=== PATIENT | male | born 1950 | race Caucasian/White ===

== ENCOUNTER 2018-05-11 18:41 | Inpatient (IN) | payer OTHER ==
[~2018-05-11] VITALS: Ht 195.6 cm; Wt 93.6 kg
[2018-05-11 19:01] LABS: COMMENTS - BLOOD GASES A+C+; DEVICE MASK VENT; FI02 100 %; PCO2 29 mm Hg (35-45); PEEP 7 CM/H20; PO2 242 mm Hg (80-100); PRES. SUPPORT 15 CM/H2O; SITE LR; TOTAL RESP RATE 38 resp/min; pH 7.37 (7.35-7.45)
[2018-05-11 19:02] LABS: BASE EXCESS -6.9 mEq/L (-3 to +3); BICARBONATE 16.8 mEq/L (22-26); CARBOXY HGB 1.6 % (0-5); METHEMOGLOBIN 1.5 % (0-1.5)
[2018-05-11 19:08] LABS: BASOPHIL (%) 0.3 % (0-1); BASOPHIL COUNT 0.1 K/uL (0-0.1); EOSINOPHIL (%) 0 % (0-5); HEMOGLOBIN 17.1 G/DL (12.5-16.6); LYMPHOCYTE (%) 3.4 % (15-42); LYMPHOCYTE COUNT 0.7 K/uL (1.0-2.8); MCH 31.8 PG (29.0-34.0); MCHC 36.4 G/DL (30.0-36.0); MCV 87.5 FL (86-99); MONOCYTE (%) 3.7 % (3-12); MONOCYTE COUNT 0.7 K/uL (0-0.8); NEUTROPHIL (%) 90.6 % (45-76); NEUTROPHIL COUNT 17.4 K/uL (1.8-6.4); PLATELET COUNT 193 K/uL (156-360); RBC DIS.WIDTH-CV 14.6 % (11.8-14.6); RBC DIS.WIDTH-SD 46.7 % (39-53); RED BLOOD COUNT 5.37 M/uL (4.00-5.50); WHITE BLOOD COUNT 19.3 K/uL (4.1-10.2)
[2018-05-11 19:15] LABS: INTER. NORMALIZED RATIO 1.1
[2018-05-11 19:17] LABS: ALBUMIN 3.2 g/dL (3.2-4.8); CHLORIDE 97 mEq/L (99-109); POTASSIUM 5.8 mEq/L (3.7-5.4); PTT 27.5 SEC (25-37); SODIUM 133 mEq/L (136-147)
[2018-05-11 19:19] LABS: GLUCOSE 121 mg/dL (70-99); TOTAL PROTEIN 6.8 g/dL (6.4-8.3)
[2018-05-11 19:21] LABS: TOTAL BILIRUBIN 0.8 mg/dL (0.0-1.0)
[2018-05-11 19:23] LABS: ALKALINE PHOSPHATASE 110 IU/L (3-129); CREATININE 7.1 mg/dL (0.6-1.3)
[2018-05-11 19:24] LABS: UREA NITROGEN (BUN) 95 mg/dL (9-23)
[2018-05-11 19:26] LABS: ALT (GPT) 623 IU/L (3-49)
[2018-05-11 19:30] LABS: TROP-I INTERPRETATION NEGATIVE; TROPONIN-I 0.05 ng/mL (0.0-0.30)
[2018-05-11 19:31] LABS: CK-MB 81.2 ng/mL (0.0-4.9)
[2018-05-11 19:37] LABS: GFR ESTIMATE (CALCULATED) 8 mL/min/ (58.99-99999)
[2018-05-11 19:38] LABS: AST (GOT) 1414 IU/L (2-34)
[2018-05-11 20:15] LABS: APPEARANCE SL.HAZY ((CLEAR)); BILIRUBIN NEGATIVE; BLOOD LARGE; GLUCOSE (STRIP) 50; KETONES NEGATIVE; LEUKOCYTES NEGATIVE; NITRITE NEGATIVE; PROTEIN (STRIP) 100; SPECIFIC GRAVITY 1.015 (1.000-1.030); UROBILINOGEN 0.2 MG/DL (0.2-1.0)
[2018-05-11 20:16] LABS: COLOR BROWN ((YELLOW))
[2018-05-11 20:18] LABS: AMORPHOUS URATES CRYSTALS 1+; BACTERIA 1+ /HPF; EPITHELIAL CELLS NONE SEEN /HPF; FINE GRANULAR CASTS 0-5 /LPF; MUCUS 1+ /LPF; RED BLOOD CELLS NONE SEEN /HPF (0-5); UCUL ADDED? NO; WHITE BLOOD CELLS NONE SEEN /HPF (0-5)
[2018-05-11 20:59] LABS: COMMENTS - BLOOD GASES C+; DEVICE VENT; FI02 100 %; MECHANICAL RATE 14 resp/min; MODE AC; SITE RR; TIDAL VOLUME 450 ML; TOTAL RESP RATE 15 resp/min
[2018-05-11 21:00] LABS: CARBOXY HGB 1.8 % (0-5); O2 SATURATION (CALCULATED) 96.9 % (95-99); PCO2 84 mm Hg (35-45); PEEP 5 CM/H20; PO2 162 mm Hg (80-100); pH 7.03 (7.35-7.45)
[2018-05-11 21:01] LABS: BASE EXCESS -10.7 mEq/L (-3 to +3); BICARBONATE 22.2 mEq/L (22-26); METHEMOGLOBIN 1.3 % (0-1.5)
[2018-05-11 21:35] LABS: COMMENTS - BLOOD GASES C+; DEVICE VENT; FI02 100 %; MECHANICAL RATE 43 resp/min; MODE AC; PEEP 10 CM/H20; SITE RR; TIDAL VOLUME 450 ML; TOTAL RESP RATE 43 resp/min; pH 7.16 (7.35-7.45)
[2018-05-11 21:36] LABS: BASE EXCESS -9.2 mEq/L (-3 to +3); BICARBONATE 20.3 mEq/L (22-26); CARBOXY HGB 1.6 % (0-5); METHEMOGLOBIN 1.5 % (0-1.5); O2 SATURATION (CALCULATED) 96.9 % (95-99); PCO2 57 mm Hg (35-45); PO2 173 mm Hg (80-100)
[2018-05-11 21:36] LABS: CKMB RELATIVE INDEX 0.3 (0.0-3.9); CREATINE KINASE 30350 IU/L (1-294); TOTAL CK 30350 IU/L (1-294)
[2018-05-11 21:45] VITALS: BP 112/73
[2018-05-11 22:00] VITALS: BP 116/73
[2018-05-11 22:30] VITALS: BP 127/84
[2018-05-11 22:35] VITALS: BP 125/84
[2018-05-11 22:58] LABS: BASE EXCESS -7.7 mEq/L (-3 to +3); BICARBONATE 18.8 mEq/L (22-26); CARBOXY HGB 0.9 % (0-5); METHEMOGLOBIN 1.3 % (0-1.5); O2 SATURATION (CALCULATED) 99.8 % (95-99); PCO2 41 mm Hg (35-45); PO2 405 mm Hg (80-100)
[2018-05-11 22:59] LABS: COMMENTS - BLOOD GASES C+A+; DEVICE VENTILATOR; FI02 100 %; MECHANICAL RATE 40 resp/min; MODE AC; PEEP 10 CM/H20; SITE RR; TIDAL VOLUME 500 ML; TOTAL RESP RATE 40 resp/min; pH 7.27 (7.35-7.45)
[2018-05-11 23:45] VITALS: BP 102/71
[2018-05-12] VITALS (18 sets, daily range): BP systolic 92–131; BP diastolic 56–78
[2018-05-12 00:33] LABS: BASOPHIL (%) 0.1 % (0-1); EOSINOPHIL (%) 0 % (0-5); HEMATOCRIT 36.6 % (38.0-50.0); HEMOGLOBIN 12.9 G/DL (12.5-16.6); IMMATURE GRANULOCYTE (%) 3.8 % (0.0-0.7); LYMPHOCYTE (%) 3.3 % (15-42); LYMPHOCYTE COUNT 0.5 K/uL (1.0-2.8); MCH 31.9 PG (29.0-34.0); MCHC 35.2 G/DL (30.0-36.0); MCV 90.4 FL (86-99); MONOCYTE (%) 3.8 % (3-12); MONOCYTE COUNT 0.6 K/uL (0-0.8); NEUTROPHIL COUNT 14.1 K/uL (1.8-6.4); PLATELET COUNT 142 K/uL (156-360); RBC DIS.WIDTH-CV 14.9 % (11.8-14.6); RBC DIS.WIDTH-SD 49.3 % (39-53); RED BLOOD COUNT 4.05 M/uL (4.00-5.50); WHITE BLOOD COUNT 15.9 K/uL (4.1-10.2)
[2018-05-12 00:38] LABS: CHLORIDE 104 mEq/L (99-109)
[2018-05-12 00:39] LABS: MAGNESIUM 2.9 mg/dL (1.3-2.7); POTASSIUM 5.7 mEq/L (3.7-5.4); SODIUM 136 mEq/L (136-147)
[2018-05-12 00:41] LABS: GLUCOSE 188 mg/dL (70-99)
[2018-05-12 00:44] LABS: CREATININE 6.9 mg/dL (0.6-1.3); GFR ESTIMATE (CALCULATED) 9 mL/min/ (58.99-99999); PHOSPHORUS 8.5 mg/dL (2.5-4.9)
[2018-05-12 00:51] LABS: UREA NITROGEN (BUN) 111 mg/dL (9-23)
[2018-05-12 01:35] LABS: BENZODIAZEPINES, URINE SCREEN Negative (200 ng/mL)
[2018-05-12 01:45] LABS: BASE EXCESS -7.5 mEq/L (-3 to +3); BICARBONATE 17.4 mEq/L (22-26); CARBOXY HGB 1.2 % (0-5); COMMENTS - BLOOD GASES C+A+; DEVICE VENTILATOR; FI02 35 %; MECHANICAL RATE 40 resp/min; METHEMOGLOBIN 1.2 % (0-1.5); MODE AC; O2 SATURATION (CALCULATED) 95.7 % (95-99); PCO2 33 mm Hg (35-45); PO2 69 mm Hg (80-100); SITE RR; TOTAL RESP RATE 40 resp/min; pH 7.33 (7.35-7.45)
[2018-05-12 01:46] LABS: PEEP 8 CM/H20; TIDAL VOLUME 500 ML
[2018-05-12 02:41] LABS: CREATINE KINASE 19290 IU/L (1-294)
[2018-05-12 03:58] LABS: CHLORIDE 100 mEq/L (99-109); SODIUM 135 mEq/L (136-147)
[2018-05-12 03:59] LABS: GLUCOSE 220 mg/dL (70-99)
[2018-05-12 04:03] LABS: CREATININE 7.1 mg/dL (0.6-1.3); GFR ESTIMATE (CALCULATED) 8 mL/min/ (58.99-99999)
[2018-05-12 04:04] LABS: UREA NITROGEN (BUN) 92 mg/dL (9-23)
[2018-05-12 05:59] LABS: BICARBONATE 18.6 mEq/L (22-26); CARBOXY HGB 1.3 % (0-5); COMMENTS - BLOOD GASES C+A+; DEVICE VENT; FI02 30 %; MECHANICAL RATE 40 resp/min; MODE AC; PCO2 30 mm Hg (35-45); PEEP 8 CM/H20; PO2 71 mm Hg (80-100); SITE RR; TIDAL VOLUME 500 ML; TOTAL RESP RATE 40 resp/min
[2018-05-12 06:16] LABS: BASOPHIL (%) 0.1 % (0-1); EOSINOPHIL (%) 0 % (0-5); HEMATOCRIT 38.3 % (38.0-50.0); HEMOGLOBIN 13.4 G/DL (12.5-16.6); IMMATURE GRANULOCYTE (%) 1.9 % (0.0-0.7); LYMPHOCYTE (%) 3.1 % (15-42); LYMPHOCYTE COUNT 0.5 K/uL (1.0-2.8); MCH 31.5 PG (29.0-34.0); MCV 89.9 FL (86-99); MONOCYTE (%) 3.5 % (3-12); MONOCYTE COUNT 0.6 K/uL (0-0.8); NEUTROPHIL (%) 91.4 % (45-76); NEUTROPHIL COUNT 15.8 K/uL (1.8-6.4); PLATELET COUNT 164 K/uL (156-360); RBC DIS.WIDTH-CV 14.9 % (11.8-14.6); RBC DIS.WIDTH-SD 49.7 % (39-53); RED BLOOD COUNT 4.26 M/uL (4.00-5.50); WHITE BLOOD COUNT 17.3 K/uL (4.1-10.2)
[2018-05-12 06:45] LABS: ALBUMIN 2.1 G/DL (3.2-4.8); ALKALINE PHOSPHATASE 66 IU/L (3-129); ALT (GPT) 367 IU/L (3-49); AST (GOT) 811 IU/L (2-34); CHLORIDE 101 MEQ/L (99-109); CREATININE 6.6 MG/DL (0.6-1.3); GFR ESTIMATE (CALCULATED) 9 mL/min/ (58.99-99999); GLUCOSE 207 mg/dL (70-99); POTASSIUM 5.2 MEQ/L (3.7-5.4); SODIUM 135 MEQ/L (136-147); TOTAL BILIRUBIN 0.8 MG/DL (0.0-1.0); TOTAL PROTEIN 4.4 G/DL (6.4-8.3)
[2018-05-12 06:50] LABS: UREA NITROGEN (BUN) 96 mg/dL (9-23)
[2018-05-12 06:54] LABS: CREATINE KINASE 16530 IU/L (1-294)
[2018-05-12 10:49] LABS: HEMOGLOBIN A1c (GLYCOHEMOGLOB) 5.8 % (Below 5.7)
[2018-05-12 14:17] LABS: INTER. NORMALIZED RATIO 1.1
[2018-05-12 14:20] LABS: PTT 24.6 SEC (25-37)
[2018-05-12 14:24] LABS: CHLORIDE 102 mEq/L (99-109); POTASSIUM 5.1 mEq/L (3.7-5.4); SODIUM 138 mEq/L (136-147)
[2018-05-12 14:26] LABS: GLUCOSE 145 mg/dL (70-99)
[2018-05-12 14:29] LABS: CREATININE 5.9 mg/dL (0.6-1.3); GFR ESTIMATE (CALCULATED) 10 mL/min/ (58.99-99999)
[2018-05-12 15:00] LABS: COMMENTS - BLOOD GASES C+; DEVICE VENT; SITE LR ALINE
[2018-05-12 15:01] LABS: FI02 30 %; MECHANICAL RATE 40 resp/min; MODE AC; PEEP 8 CM/H20; TIDAL VOLUME 500 ML; TOTAL RESP RATE 40 resp/min
[2018-05-12 15:02] LABS: BASE EXCESS -3.3 mEq/L (-3 to +3); BICARBONATE 20.1 mEq/L (22-26); CARBOXY HGB 1.4 % (0-5); METHEMOGLOBIN 1.1 % (0-1.5); O2 SATURATION (CALCULATED) 97.4 % (95-99); PCO2 31 mm Hg (35-45); PO2 81 mm Hg (80-100); pH 7.42 (7.35-7.45)
[2018-05-12 15:26] LABS: CREATINE KINASE 12912 IU/L (1-294); UREA NITROGEN (BUN) 92 mg/dL (9-23)
[2018-05-12 15:39] LABS: PHOSPHORUS 6.2 mg/dL (2.5-4.9)
[2018-05-12 20:04] LABS: CHLORIDE 103 MEQ/L (99-109); CREATININE 6.1 MG/DL (0.6-1.3); GFR ESTIMATE (CALCULATED) 10 mL/min/ (58.99-99999); GLUCOSE 148 mg/dL (70-99); POTASSIUM 5.2 MEQ/L (3.7-5.4); SODIUM 138 MEQ/L (136-147); UREA NITROGEN (BUN) 99 mg/dL (9-23)
[2018-05-12 21:33] LABS: CREATINE KINASE 9698 IU/L (1-294)
[2018-05-13] VITALS (12 sets, daily range): BP systolic 107–142; BP diastolic 54–72
[2018-05-13 01:00] LABS: CHLORIDE 103 mEq/L (99-109); POTASSIUM 4.5 mEq/L (3.7-5.4); SODIUM 139 mEq/L (136-147)
[2018-05-13 01:02] LABS: GLUCOSE 136 mg/dL (70-99)
[2018-05-13 01:06] LABS: CREATININE 5.2 mg/dL (0.6-1.3); GFR ESTIMATE (CALCULATED) 12 mL/min/ (58.99-99999); UREA NITROGEN (BUN) 91 mg/dL (9-23)
[2018-05-13 01:24] LABS: CREATINE KINASE 9553 IU/L (1-294)
[2018-05-13 05:31] LABS: BASOPHIL (%) 0.1 % (0-1); EOSINOPHIL (%) 0 % (0-5); HEMATOCRIT 35.6 % (38.0-50.0); HEMOGLOBIN 12.4 G/DL (12.5-16.6); IMMATURE GRANULOCYTE (%) 2.1 % (0.0-0.7); LYMPHOCYTE (%) 3.2 % (15-42); LYMPHOCYTE COUNT 0.6 K/uL (1.0-2.8); MCH 31.2 PG (29.0-34.0); MCHC 34.8 G/DL (30.0-36.0); MCV 89.7 FL (86-99); MONOCYTE (%) 4.6 % (3-12); MONOCYTE COUNT 0.9 K/uL (0-0.8); NEUTROPHIL COUNT 16.9 K/uL (1.8-6.4); PLATELET COUNT 195 K/uL (156-360); RBC DIS.WIDTH-SD 49.5 % (39-53); RED BLOOD COUNT 3.97 M/uL (4.00-5.50); WHITE BLOOD COUNT 18.8 K/uL (4.1-10.2)
[2018-05-13 05:33] LABS: INTER. NORMALIZED RATIO 1.1
[2018-05-13 05:35] LABS: PTT 26.1 SEC (25-37)
[2018-05-13 05:55] LABS: VANCOMYCIN, TROUGH 18.3 MCG/ML (10-20)
[2018-05-13 05:57] LABS: FIBRINOGEN 629 mg/dL (150-450)
[2018-05-13 06:55] LABS: ALBUMIN 2.3 G/DL (3.2-4.8); ALKALINE PHOSPHATASE 63 IU/L (3-129); ALT (GPT) 277 IU/L (3-49); AST (GOT) 494 IU/L (2-34); CHLORIDE 103 MEQ/L (99-109); CREATININE 5.5 MG/DL (0.6-1.3); GFR ESTIMATE (CALCULATED) 11 mL/min/ (58.99-99999); GLUCOSE 149 mg/dL (70-99); PHOSPHORUS 5.6 mg/dL (2.5-4.9); POTASSIUM 4.7 MEQ/L (3.7-5.4); SODIUM 138 MEQ/L (136-147); TOTAL PROTEIN 4.7 G/DL (6.4-8.3); UREA NITROGEN (BUN) 83 mg/dL (9-23)
[2018-05-13 06:58] LABS: TOTAL BILIRUBIN 0.6 MG/DL (0.0-1.0)
[2018-05-13 10:26] LABS: HEPATITIS B SURFACE ANTIGEN Nonreactive
[2018-05-13 10:27] LABS: HEPATITIS B SURFACE ANTIBODY Nonreactive
[2018-05-13 10:52] LABS: MAGNESIUM 2.6 mg/dl (1.3-2.7)
[2018-05-14] VITALS (13 sets, daily range): BP systolic 93–132; BP diastolic 51–69
[2018-05-14 05:58] LABS: HEMATOCRIT 33.3 % (38.0-50.0); HEMOGLOBIN 11.6 G/DL (12.5-16.6); MCH 31.7 PG (29.0-34.0); MCHC 34.8 G/DL (30.0-36.0); PLATELET COUNT 249 K/uL (156-360); RBC DIS.WIDTH-CV 15.1 % (11.8-14.6); RBC DIS.WIDTH-SD 50.3 % (39-53); RED BLOOD COUNT 3.66 M/uL (4.00-5.50); WHITE BLOOD COUNT 17.8 K/uL (4.1-10.2)
[2018-05-14 06:22] LABS: ALBUMIN 2.3 G/DL (3.2-4.8); CHLORIDE 100 MEQ/L (99-109); CREATININE 5.9 MG/DL (0.6-1.3); GFR ESTIMATE (CALCULATED) 10 mL/min/ (58.99-99999); GLUCOSE 137 mg/dL (70-99); PHOSPHORUS 4.8 mg/dL (2.5-4.9); POTASSIUM 4.9 MEQ/L (3.7-5.4); SODIUM 139 MEQ/L (136-147)
[2018-05-14 07:15] LABS: CREATINE KINASE 1999 IU/L (1-294); UREA NITROGEN (BUN) 101 mg/dL (9-23)
[2018-05-14 07:20] LABS: ABS NEUTROPHIL COUNT 15.1; ACANTHOCYTES 1+; ANISOCYTOSIS 1+; BAND NEUTROPHILS 16.7 % (0-8.0); BURR CELLS 2+; EOSINOPHIL ABS CT 0; LYMPHOCYTES 7.9 % (15.0-45.0); PLAT.SUFFICIENCY ADEQUATE; POIKILOCYTOSIS 3+; POLYCHROMASIA 1+; SEG.NEUTROPHILS 68.4 % (46.0-76.0)
[2018-05-14 12:12] LABS: ANTI-HEPATITIS B CORE (TOTAL) Nonreactive
[2018-05-15 04:00] VITALS: BP 108/56
[2018-05-15 05:23] LABS: HEMOGLOBIN 12.3 G/DL (12.5-16.6); MCH 32.1 PG (29.0-34.0); MCHC 35.1 G/DL (30.0-36.0); MCV 91.4 FL (86-99); PLATELET COUNT 285 K/uL (156-360); RBC DIS.WIDTH-CV 15.3 % (11.8-14.6); RBC DIS.WIDTH-SD 50.7 % (39-53); RED BLOOD COUNT 3.83 M/uL (4.00-5.50); WHITE BLOOD COUNT 21.5 K/uL (4.1-10.2)
[2018-05-15 05:49] LABS: ALBUMIN 2.2 G/DL (3.2-4.8); CHLORIDE 99 MEQ/L (99-109); CREATINE KINASE 573 IU/L (1-294); CREATININE 5.7 MG/DL (0.6-1.3); GFR ESTIMATE (CALCULATED) 11 mL/min/ (58.99-99999); GLUCOSE 117 mg/dL (70-99); PHOSPHORUS 5.3 mg/dL (2.5-4.9); POTASSIUM 4.7 MEQ/L (3.7-5.4); SODIUM 139 MEQ/L (136-147); UREA NITROGEN (BUN) 81 mg/dL (9-23); VANCOMYCIN, TROUGH 16.8 MCG/ML (10-20)
[2018-05-15 06:59] LABS: ABS NEUTROPHIL COUNT 17.9; BAND NEUTROPHILS 3.5 % (0-8.0); EOSINOPHIL ABS CT 0.2; EOSINOPHILS 0.9 % (0-5.0); MONOCYTES 5.3 % (0-9.0); MYELOCYTES 3.5 %; SEG.NEUTROPHILS 79.8 % (46.0-76.0)
[2018-05-16] VITALS (13 sets, daily range): BP systolic 106–167; BP diastolic 65–90
[2018-05-16 06:07] LABS: HEMATOCRIT 35.9 % (38.0-50.0); HEMOGLOBIN 12.5 G/DL (12.5-16.6); MCH 31.3 PG (29.0-34.0); MCHC 34.8 G/DL (30.0-36.0); PLATELET COUNT 339 K/uL (156-360); RBC DIS.WIDTH-CV 14.5 % (11.8-14.6); RBC DIS.WIDTH-SD 47.6 % (39-53); RED BLOOD COUNT 3.99 M/uL (4.00-5.50); WHITE BLOOD COUNT 23.6 K/uL (4.1-10.2)
[2018-05-16 06:14] LABS: ALBUMIN 2.1 G/DL (3.2-4.8); CHLORIDE 102 MEQ/L (99-109); GFR ESTIMATE (CALCULATED) 8 mL/min/ (58.99-99999); GLUCOSE 112 mg/dL (70-99); PHOSPHORUS 5.4 mg/dL (2.5-4.9); POTASSIUM 4.5 MEQ/L (3.7-5.4); SODIUM 141 MEQ/L (136-147)
[2018-05-16 06:54] LABS: CREATININE 7.3 MG/DL (0.6-1.3); UREA NITROGEN (BUN) 116 mg/dL (9-23)
[2018-05-16 07:02] LABS: ABS NEUTROPHIL COUNT 18.9; ANISOCYTOSIS NONE SEEN; ATYPICAL LYMPHOCYTE 0.4 %; BAND NEUTROPHILS 4.3 % (0-8.0); BASOPHILS 0.4 %; BURR CELLS 2+; EOSINOPHIL ABS CT 0.8; EOSINOPHILS 3.4 % (0-5.0); LYMPHOCYTES 7.7 % (15.0-45.0); METAMYELOCYTES 1.3 %; MONOCYTES 5.2 % (0-9.0); MYELOCYTES 1.7 %; PLAT.SUFFICIENCY ADEQUATE; POIKILOCYTOSIS 2+; SEG.NEUTROPHILS 75.6 % (46.0-76.0)
[2018-05-17] VITALS (24 sets, daily range): BP systolic 105–151; BP diastolic 58–99
[2018-05-17 05:32] LABS: HEMATOCRIT 37.5 % (38.0-50.0); MCH 31.5 PG (29.0-34.0); MCHC 34.7 G/DL (30.0-36.0); MCV 90.8 FL (86-99); PLATELET COUNT 386 K/uL (156-360); RBC DIS.WIDTH-CV 14.4 % (11.8-14.6); RBC DIS.WIDTH-SD 47.8 % (39-53); RED BLOOD COUNT 4.13 M/uL (4.00-5.50); WHITE BLOOD COUNT 19.7 K/uL (4.1-10.2)
[2018-05-17 06:18] LABS: ALBUMIN 2.3 G/DL (3.2-4.8); ALKALINE PHOSPHATASE 66 IU/L (3-129); ALT (GPT) 142 IU/L (3-49); CHLORIDE 101 MEQ/L (99-109); CREATININE 6.1 MG/DL (0.6-1.3); GFR ESTIMATE (CALCULATED) 10 mL/min/ (58.99-99999); GLUCOSE 106 mg/dL (70-99); MAGNESIUM 2.6 mg/dl (1.3-2.7); PHOSPHORUS 6.6 mg/dL (2.5-4.9); POTASSIUM 4.8 MEQ/L (3.7-5.4); SODIUM 142 MEQ/L (136-147); TOTAL PROTEIN 4.4 G/DL (6.4-8.3); UREA NITROGEN (BUN) 91 mg/dL (9-23)
[2018-05-17 06:21] LABS: TOTAL BILIRUBIN 0.9 MG/DL (0.0-1.0)
[2018-05-17 06:22] LABS: AST (GOT) 107 IU/L (2-34)
[2018-05-17 06:43] LABS: ABS NEUTROPHIL COUNT 15.9; ANISOCYTOSIS NONE SEEN; ATYPICAL LYMPHOCYTE 0.9 %; BAND NEUTROPHILS 2.6 % (0-8.0); BURR CELLS 2+; EOSINOPHIL ABS CT 0.2; EOSINOPHILS 0.9 % (0-5.0); LYMPHOCYTES 4.3 % (15.0-45.0); METAMYELOCYTES 5.2 %; MONOCYTES 6.9 % (0-9.0); MYELOCYTES 0.9 %; PLAT.SUFFICIENCY INCREASED; POIKILOCYTOSIS 2+; SEG.NEUTROPHILS 78.3 % (46.0-76.0)
[2018-05-18] VITALS (22 sets, daily range): BP systolic 130–151; BP diastolic 74–93
[2018-05-18 05:27] LABS: HEMATOCRIT 36.9 % (38.0-50.0); HEMOGLOBIN 12.8 G/DL (12.5-16.6); MCH 31.6 PG (29.0-34.0); MCHC 34.7 G/DL (30.0-36.0); MCV 91.1 FL (86-99); PLATELET COUNT 435 K/uL (156-360); RBC DIS.WIDTH-CV 14.4 % (11.8-14.6); RBC DIS.WIDTH-SD 47.8 % (39-53); RED BLOOD COUNT 4.05 M/uL (4.00-5.50); WHITE BLOOD COUNT 18.6 K/uL (4.1-10.2)
[2018-05-18 06:04] LABS: ALBUMIN 2.3 G/DL (3.2-4.8); ALKALINE PHOSPHATASE 66 IU/L (3-129); ALT (GPT) 121 IU/L (3-49); AST (GOT) 82 IU/L (2-34); CHLORIDE 101 MEQ/L (99-109); GFR ESTIMATE (CALCULATED) 13 mL/min/ (58.99-99999); GLUCOSE 101 mg/dL (70-99); MAGNESIUM 2.4 mg/dl (1.3-2.7); PHOSPHORUS 6.3 mg/dL (2.5-4.9); POTASSIUM 4.6 MEQ/L (3.7-5.4); SODIUM 141 MEQ/L (136-147); TOTAL BILIRUBIN 0.9 MG/DL (0.0-1.0); TOTAL PROTEIN 4.5 G/DL (6.4-8.3); UREA NITROGEN (BUN) 58 mg/dL (9-23)
[2018-05-18 06:08] LABS: CREATININE 4.9 MG/DL (0.6-1.3)
[2018-05-18 06:23] LABS: ABS NEUTROPHIL COUNT 16.2; ANISOCYTOSIS NONE SEEN; BAND NEUTROPHILS 5.2 % (0-8.0); BURR CELLS 1+; EOSINOPHIL ABS CT 0.3; EOSINOPHILS 1.7 % (0-5.0); LYMPHOCYTES 2.6 % (15.0-45.0); METAMYELOCYTES 0.9 %; MONOCYTES 6.9 % (0-9.0); MYELOCYTES 0.9 %; PLAT.SUFFICIENCY INCREASED; POIKILOCYTOSIS 1+; SEG.NEUTROPHILS 81.8 % (46.0-76.0)
[2018-05-19] VITALS (8 sets, daily range): BP systolic 130–146; BP diastolic 69–82
[2018-05-19 06:43] LABS: HEMATOCRIT 35.7 % (38.0-50.0); HEMOGLOBIN 12.2 G/DL (12.5-16.6); MCH 31.6 PG (29.0-34.0); MCHC 34.2 G/DL (30.0-36.0); MCV 92.5 FL (86-99); PLATELET COUNT 422 K/uL (156-360); RBC DIS.WIDTH-CV 14.9 % (11.8-14.6); RBC DIS.WIDTH-SD 50.6 % (39-53); RED BLOOD COUNT 3.86 M/uL (4.00-5.50); WHITE BLOOD COUNT 16.7 K/uL (4.1-10.2)
[2018-05-19 06:46] LABS: ALBUMIN 2.4 G/DL (3.2-4.8); ALKALINE PHOSPHATASE 66 IU/L (3-129); ALT (GPT) 99 IU/L (3-49); AST (GOT) 62 IU/L (2-34); CHLORIDE 101 MEQ/L (99-109); GLUCOSE 107 mg/dL (70-99); MAGNESIUM 2.7 mg/dl (1.3-2.7); SODIUM 141 MEQ/L (136-147); TOTAL PROTEIN 4.7 G/DL (6.4-8.3); UREA NITROGEN (BUN) 80 mg/dL (9-23)
[2018-05-19 06:47] LABS: CREATININE 6.8 MG/DL (0.6-1.3); GFR ESTIMATE (CALCULATED) 9 mL/min/ (58.99-99999); PHOSPHORUS 9.5 mg/dL (2.5-4.9); TOTAL BILIRUBIN 0.7 MG/DL (0.0-1.0)
[2018-05-19 06:57] LABS: ANISOCYTOSIS 1+; BAND NEUTROPHILS 3.5 % (0-8.0); EOSINOPHIL ABS CT 0.3; EOSINOPHILS 1.7 % (0-5.0); LYMPHOCYTES 3.5 % (15.0-45.0); MONOCYTES 5.2 % (0-9.0); PLAT.SUFFICIENCY INCREASED; POIKILOCYTOSIS 1+; SEG.NEUTROPHILS 86.1 % (46.0-76.0)
[2018-05-19 08:34] LABS: HEMATOCRIT 36.1 % (38.0-50.0); HEMOGLOBIN 12.5 G/DL (12.5-16.6); MCH 32.1 PG (29.0-34.0); MCHC 34.6 G/DL (30.0-36.0); MCV 92.8 FL (86-99); PLATELET COUNT 440 K/uL (156-360); RBC DIS.WIDTH-CV 14.7 % (11.8-14.6); RBC DIS.WIDTH-SD 50.1 % (39-53); RED BLOOD COUNT 3.89 M/uL (4.00-5.50); WHITE BLOOD COUNT 17.3 K/uL (4.1-10.2)
[2018-05-19 08:43] LABS: ALBUMIN 2.6 G/DL (3.2-4.8); CHLORIDE 101 MEQ/L (99-109); POTASSIUM 4.7 MEQ/L (3.7-5.4); SODIUM 141 MEQ/L (136-147)
[2018-05-19 08:54] LABS: GFR ESTIMATE (CALCULATED) 8 mL/min/ (58.99-99999); GLUCOSE 125 mg/dL (70-99); UREA NITROGEN (BUN) 87 mg/dL (9-23)
[2018-05-19 09:04] LABS: ABS NEUTROPHIL COUNT 14.2; ANISOCYTOSIS NONE SEEN; BAND NEUTROPHILS 0.9 % (0-8.0); EOSINOPHIL ABS CT 0.3; EOSINOPHILS 1.8 % (0-5.0); LYMPHOCYTES 6.4 % (15.0-45.0); METAMYELOCYTES 4.5 %; MONOCYTES 5.5 % (0-9.0); NUCLEATED RBC'S 0.9; PLAT.SUFFICIENCY INCREASED; SEG.NEUTROPHILS 80.9 % (46.0-76.0); SMUDGE CELLS 6.4
[2018-05-19] MEDS ORDERED: ONE DAILY1 EAC3 PO (16:06)
[2018-05-19] MEDS ORDERED: LO-DOSE ASPIRIN81 M1 PO (16:07)
[2018-05-19] MEDS ORDERED: TYLENOL REGULA325 MG PO (16:07)
[2018-05-20 04:00] VITALS: BP 134/82
[2018-05-20 06:05] LABS: HEMATOCRIT 37.2 % (38.0-50.0); HEMOGLOBIN 12.5 G/DL (12.5-16.6); MCH 31.5 PG (29.0-34.0); MCHC 33.6 G/DL (30.0-36.0); MCV 93.7 FL (86-99); RBC DIS.WIDTH-CV 14.6 % (11.8-14.6); RBC DIS.WIDTH-SD 50.3 % (39-53); RED BLOOD COUNT 3.97 M/uL (4.00-5.50); WHITE BLOOD COUNT 17.1 K/uL (4.1-10.2)
[2018-05-20 06:18] LABS: ALBUMIN 2.5 G/DL (3.2-4.8); ALKALINE PHOSPHATASE 70 IU/L (3-129); ALT (GPT) 90 IU/L (3-49); AST (GOT) 60 IU/L (2-34); CHLORIDE 101 MEQ/L (99-109); GFR ESTIMATE (CALCULATED) 10 mL/min/ (58.99-99999); GLUCOSE 95 mg/dL (70-99); MAGNESIUM 2.5 mg/dl (1.3-2.7); PHOSPHORUS 7.2 mg/dL (2.5-4.9); POTASSIUM 4.8 MEQ/L (3.7-5.4); SODIUM 139 MEQ/L (136-147); TOTAL BILIRUBIN 0.7 MG/DL (0.0-1.0); UREA NITROGEN (BUN) 60 mg/dL (9-23)
[2018-05-20 06:35] LABS: BASOPHIL (%) 0.6 % (0-1); BASOPHIL COUNT 0.1 K/uL (0-0.1); EOSINOPHIL (%) 2.8 % (0-5); EOSINOPHIL COUNT 0.5 K/uL (0-0.3); IMMATURE GRANULOCYTE (%) 4.3 % (0.0-0.7); LYMPHOCYTE (%) 13.2 % (15-42); LYMPHOCYTE COUNT 2.3 K/uL (1.0-2.8); MONOCYTE (%) 8.6 % (3-12); MONOCYTE COUNT 1.5 K/uL (0-0.8); NEUTROPHIL (%) 70.5 % (45-76); NEUTROPHIL COUNT 12.1 K/uL (1.8-6.4)
[2018-05-20 07:12] LABS: ANISOCYTOSIS NONE SEEN; PLAT.SUFFICIENCY ADEQUATE; POIKILOCYTOSIS 3+
[2018-05-20 07:20] LABS: PLATELET COUNT 303 K/uL (156-360)
[2018-05-20 07:49] VITALS: BP 148/74
[2018-05-20 12:22] VITALS: BP 132/74
[2018-05-20 15:47] VITALS: BP 132/76
[2018-05-21 00:37] VITALS: BP 139/76
[2018-05-21 03:56] LABS: C DIFF TOXIN NEGATIVE (NEGATIVE)
[2018-05-21 06:26] LABS: BASOPHIL (%) 0.4 % (0-1); BASOPHIL COUNT 0.1 K/uL (0-0.1); EOSINOPHIL (%) 2.7 % (0-5); EOSINOPHIL COUNT 0.5 K/uL (0-0.3); HEMATOCRIT 36.4 % (38.0-50.0); HEMOGLOBIN 12.2 G/DL (12.5-16.6); IMMATURE GRANULOCYTE (%) 2.3 % (0.0-0.7); LYMPHOCYTE COUNT 2.6 K/uL (1.0-2.8); MCH 31.3 PG (29.0-34.0); MCHC 33.5 G/DL (30.0-36.0); MCV 93.3 FL (86-99); MONOCYTE (%) 9.4 % (3-12); MONOCYTE COUNT 1.6 K/uL (0-0.8); NEUTROPHIL (%) 69.2 % (45-76); NEUTROPHIL COUNT 11.4 K/uL (1.8-6.4); PLATELET COUNT 296 K/uL (156-360); RBC DIS.WIDTH-CV 14.6 % (11.8-14.6); RBC DIS.WIDTH-SD 50.1 % (39-53); WHITE BLOOD COUNT 16.4 K/uL (4.1-10.2)
[2018-05-21 06:53] LABS: C4 COMPLEMENT 13 MG/DL (10-40)
[2018-05-21 07:00] LABS: ALBUMIN 2.4 G/DL (3.2-4.8); ALKALINE PHOSPHATASE 73 IU/L (3-129); ALT (GPT) 75 IU/L (3-49); AST (GOT) 52 IU/L (2-34); CHLORIDE 101 MEQ/L (99-109); GFR ESTIMATE (CALCULATED) 8 mL/min/ (58.99-99999); GLUCOSE 95 mg/dL (70-99); MAGNESIUM 2.5 mg/dl (1.3-2.7); PHOSPHORUS 8.7 mg/dL (2.5-4.9); POTASSIUM 5.2 MEQ/L (3.7-5.4); SODIUM 138 MEQ/L (136-147); TOTAL BILIRUBIN 0.7 MG/DL (0.0-1.0); TOTAL PROTEIN 4.9 G/DL (6.4-8.3); UREA NITROGEN (BUN) 80 mg/dL (9-23)
[2018-05-21 07:02] LABS: CREATININE 7.4 MG/DL (0.6-1.3)
[2018-05-21 07:04] VITALS: BP 161/80
[2018-05-21 15:16] VITALS: BP 142/80
[2018-05-21 17:53] LABS: CREATINE KINASE 109 IU/L (1-294)
[2018-05-22] VITALS: BP 136/78
[2018-05-22 05:42] LABS: INTER. NORMALIZED RATIO 1.2
[2018-05-22 05:44] LABS: PTT 27.1 SEC (25-37)
[2018-05-22 05:48] LABS: HEMATOCRIT 35.7 % (38.0-50.0); HEMOGLOBIN 12.1 G/DL (12.5-16.6); MCH 31.8 PG (29.0-34.0); MCHC 33.9 G/DL (30.0-36.0); MCV 93.9 FL (86-99); RBC DIS.WIDTH-CV 14.6 % (11.8-14.6); RBC DIS.WIDTH-SD 49.1 % (39-53); WHITE BLOOD COUNT 18.1 K/uL (4.1-10.2)
[2018-05-22 06:19] LABS: ALBUMIN 2.4 G/DL (3.2-4.8); CHLORIDE 101 MEQ/L (99-109); CREATININE 5.5 MG/DL (0.6-1.3); GFR ESTIMATE (CALCULATED) 11 mL/min/ (58.99-99999); GLUCOSE 97 mg/dL (70-99); PHOSPHORUS 6.8 mg/dL (2.5-4.9); POTASSIUM 4.7 MEQ/L (3.7-5.4); SODIUM 139 MEQ/L (136-147); UREA NITROGEN (BUN) 55 mg/dL (9-23)
[2018-05-22 06:23] LABS: HEMATOLOGY COMMENT 1 SN; PLAT.SUFFICIENCY ADEQUATE; PLATELET COUNT UNABLE TO REPORT K/uL (156-360)
[2018-05-22 07:56] VITALS: BP 139/70
[2018-05-22 15:33] VITALS: BP 139/77
[2018-05-23 00:12] VITALS: BP 114/61
[2018-05-23 07:42] VITALS: BP 126/65
[2018-05-23 13:21] LABS: BASOPHIL (%) 0.5 % (0-1); BASOPHIL COUNT 0.1 K/uL (0-0.1); EOSINOPHIL (%) 2.8 % (0-5); EOSINOPHIL COUNT 0.4 K/uL (0-0.3); IMMATURE GRANULOCYTE (%) 0.6 % (0.0-0.7); LYMPHOCYTE (%) 23.6 % (15-42); LYMPHOCYTE COUNT 3.4 K/uL (1.0-2.8); MCH 32.3 PG (29.0-34.0); MCHC 34.3 G/DL (30.0-36.0); MCV 94.1 FL (86-99); MONOCYTE (%) 7.5 % (3-12); MONOCYTE COUNT 1.1 K/uL (0-0.8); NEUTROPHIL COUNT 9.2 K/uL (1.8-6.4); RBC DIS.WIDTH-CV 14.6 % (11.8-14.6); RBC DIS.WIDTH-SD 50.4 % (39-53); RED BLOOD COUNT 3.72 M/uL (4.00-5.50); WHITE BLOOD COUNT 14.2 K/uL (4.1-10.2)
[2018-05-23 13:24] LABS: PLATELET COUNT 154 K/uL (156-360)
[2018-05-23 13:42] LABS: ALBUMIN 2.5 G/DL (3.2-4.8); CHLORIDE 100 MEQ/L (99-109); CREATININE 7.1 MG/DL (0.6-1.3); GFR ESTIMATE (CALCULATED) 8 mL/min/ (58.99-99999); GLUCOSE 135 mg/dL (70-99); PHOSPHORUS 7.1 mg/dL (2.5-4.9); POTASSIUM 4.7 MEQ/L (3.7-5.4); SODIUM 137 MEQ/L (136-147); UREA NITROGEN (BUN) 74 mg/dL (9-23)
[2018-05-23 18:16] VITALS: BP 145/88
[2018-05-23 23:00] VITALS: BP 125/65
[2018-05-24 07:16] VITALS: BP 125/67
[2018-05-24 15:14] VITALS: BP 144/81
[2018-05-25] VITALS: BP 102/63
[2018-05-25 07:11] VITALS: BP 111/59
[2018-05-25 15:07] VITALS: BP 130/74
[2018-05-25 23:21] VITALS: BP 129/72
[2018-05-26 07:06] VITALS: BP 130/75
[2018-05-26 09:22] LABS: HEMATOCRIT 32.2 % (38.0-50.0); HEMOGLOBIN 10.9 G/DL (12.5-16.6); MCH 31.7 PG (29.0-34.0); MCHC 33.9 G/DL (30.0-36.0); MCV 93.6 FL (86-99); RBC DIS.WIDTH-CV 14.6 % (11.8-14.6); RBC DIS.WIDTH-SD 50.2 % (39-53); RED BLOOD COUNT 3.44 M/uL (4.00-5.50); WHITE BLOOD COUNT 10.8 K/uL (4.1-10.2)
[2018-05-26 09:43] LABS: PLATELET CLUMPS PRESENT - PLATELET COUNT APPEARS DECREASED
[2018-05-26 09:49] LABS: PLATELET COUNT UNABLE TO REPORT K/uL (156-360)
[2018-05-26 10:10] LABS: ALBUMIN 2.5 G/DL (3.2-4.8); ALKALINE PHOSPHATASE 81 IU/L (3-129); ALT (GPT) 19 IU/L (3-49); AST (GOT) 21 IU/L (2-34); CHLORIDE 100 MEQ/L (99-109); CREATININE 7.3 MG/DL (0.6-1.3); GFR ESTIMATE (CALCULATED) 8 mL/min/ (58.99-99999); GLUCOSE 149 mg/dL (70-99); POTASSIUM 4.5 MEQ/L (3.7-5.4); SODIUM 137 MEQ/L (136-147); TOTAL BILIRUBIN 0.5 MG/DL (0.0-1.0); TOTAL PROTEIN 4.9 G/DL (6.4-8.3); UREA NITROGEN (BUN) 65 mg/dL (9-23)
[2018-05-26 16:19] VITALS: BP 133/77
[2018-05-26 23:43] VITALS: BP 98/51
[2018-05-27 07:19] VITALS: BP 110/66
[2018-05-27] MEDS ORDERED: CEPHALEXIN500 MG PO (14:20)
[2018-05-27] MEDS ORDERED: BENADRYL25 MG PO (14:20)
[2018-05-27] MEDS ORDERED: CALCIUM ACETAT667 MG PO (14:20)
[2018-05-27] MEDS ORDERED: CORTIZONE-10 PL57 GM TP (14:22)
== END 2018-05-27 17:16 | disposition home health service (06) | DRG 682 ==
LOC: EDBD 18:41 → EME 18:41 → 4WEST 20:12 → EDOF 20:12 → 5SOUTH 20:12 → ENRESERV 20:18 → 4WEST 22:15 → ENRESERV 05-18 21:05 → 5SOUTH 05-19 01:03
PROVIDERS: Emergency Medicine; Internal Medicine; Internal Medicine Critical Care Medicine; Internal Medicine Nephrology; Physician Assistant
PROC: 0BH17EZ Insertion of Endotracheal Airway into Trachea, Via Natural or Artificial Opening (ICD-10-PCS; principal; 2018-05-11)
PROC: 5A1D80Z Performance of Urinary Filtration, Prolonged Intermittent, 6-18 hours Per Day (ICD-10-PCS; principal; 2018-05-11)
PROC: 5A09357 Assistance with Respiratory Ventilation, Less than 24 Consecutive Hours, Continuous Positive Airway Pressure (ICD-10-PCS; principal; 2018-05-11)
PROC: 5A1945Z Respiratory Ventilation, 24-96 Consecutive Hours (ICD-10-PCS; principal; 2018-05-11)
PROC: 02HV33Z Insertion of Infusion Device into Superior Vena Cava, Percutaneous Approach (ICD-10-PCS; principal; 2018-05-11)
PROC: 02HV33Z Insertion of Infusion Device into Superior Vena Cava, Percutaneous Approach (ICD-10-PCS; 2018-05-12)
PROC: 5A1D70Z Performance of Urinary Filtration, Intermittent, Less than 6 Hours Per Day (ICD-10-PCS; 2018-05-12)
PROC: 02PY33Z Removal of Infusion Device from Great Vessel, Percutaneous Approach (ICD-10-PCS; 2018-05-12)
PROC: 02HV33Z Insertion of Infusion Device into Superior Vena Cava, Percutaneous Approach (ICD-10-PCS; 2018-05-18)
PROC: 0TB13ZX Excision of Left Kidney, Percutaneous Approach, Diagnostic (ICD-10-PCS; 2018-05-22)
DX: N17.0 Acute kidney failure with tubular necrosis (principal); J69.0 Pneumonitis due to inhalation of food and vomit; A48.1 Legionnaires' disease; T82.49XA Other complication of vascular dialysis catheter, initial encounter; G93.41 Metabolic encephalopathy; L89.150 Pressure ulcer of sacral region, unstageable; L89.221 Pressure ulcer of left hip, stage 1; L89.891 Pressure ulcer of other site, stage 1; E87.5 Hyperkalemia; R47.01 Aphasia; J96.01 Acute respiratory failure with hypoxia; J96.02 Acute respiratory failure with hypercapnia; E87.4 Mixed disorder of acid-base balance; E83.39 Other disorders of phosphorus metabolism; E83.41 Hypermagnesemia; E83.51 Hypocalcemia; E86.0 Dehydration; E87.70 Fluid overload, unspecified; R13.10 Dysphagia, unspecified; T79.6XXA Traumatic ischemia of muscle, initial encounter; S00.01XA Abrasion of scalp, initial encounter; W18.30XA Fall on same level, unspecified, initial encounter; Y92.039 Unspecified place in apartment as the place of occurrence of the external cause; L27.1 Localized skin eruption due to drugs and medicaments taken internally; T37.8X5A Adverse effect of other specified systemic anti-infectives and antiparasitics, initial encounter; R19.7 Diarrhea, unspecified; R74.0 Nonspecific elevation of levels of transaminase and lactic acid dehydrogenase [LDH]; I10 Essential (primary) hypertension; E11.9 Type 2 diabetes mellitus without complications; R47.1 Dysarthria and anarthria; J44.9 Chronic obstructive pulmonary disease, unspecified; F17.200 Nicotine dependence, unspecified, uncomplicated; Z75.1 Person awaiting admission to adequate facility elsewhere
CPT/HCPCS: 36600; 36620; 70450; 71045; 71250; 74176; 77012; 80047; 80048; 80048 91; 80053; 80069; 80202; 80306 90; 81003; 82140; 82330; 82550; 82550 91; 82553; 82948; 83036; 83605; 83735; 83880; 84100; 84484; 85025; 85025 91; 85027; 85384; 85610; 85730; 86160; 86162 90; 86704; 86706; 86803; 87040; 87070; 87077; 87147; 87186; 87205; 87340; 87449; 87493; 87641; 88305; 88313 90; 88346 90; 88348 90; 92526 GN; 92610 GN; 93005; 94002; 94003; 94640; 94644; 94669; 94760; 94799; 97530 GO; 97530 GP; 99281; 99285; A6214; C1750; C1751; C1752; C1769; C1788; C1894; J0690; J1630; J1644; J1815; J1956; J2250; J2543; J2704; J3010; J3370; J7030; J7050; J7070; P9047; S0020; S0028